=== PATIENT | male | born 1960 | race Caucasian/White ===

== ENCOUNTER → 2020-11-18 | Outpatient (CLI) | payer OTHER ==
--- NOTE | 2020-11-19 08:38 | RAD ---
EXAM: AP, lateral and open-mouth odontoid views of the cervical spine DATE: 11/18/2020 12:59 PM CLINICAL HISTORY: Reason: NECK PAIN. / Spl. Instructions: / History: COMPARISON: None available. FINDINGS: On the lateral view, the cervical spine is imaged from the skull base to C6. Vertebral body heights are preserved. Moderate C4-5, C5-6 and C6-7 disc height loss. Small anterior e ndplate osteophytes. No spondylolisthesis. There is no offset of the lateral masses of C1 on C2. No spondylolisthesis. Straightening of the norm al cervical stenosis. Normal predental space. No significant prevertebral soft tissue swelling. IMPRESSION: 1. Multilevel spondylosis as above 2. Negative acute fracture or subluxation. Electronically signed by: Albino Canales MD (11/19/2020 8:36 AM) [id number]
== END ==
LOC: RAD 12:28
PROVIDERS: ATTEND Anesthesiology Pain Medicine
DX: M47.812 Spondylosis without myelopathy or radiculopathy, cervical region (principal); M25.78 Osteophyte, vertebrae
CPT/HCPCS: 72040